=== PATIENT | female | born 1960 | race Caucasian/White ===

== ENCOUNTER 2016-09-13 06:55 | Day surgery (SDC) | payer BC ==
[2016-09-13] MEDS ORDERED: PROPOFOL 20 ML ONE ×2 (07:24)
[2016-09-13] MEDS ORDERED: PHENYLEPHRINE HCL 10 MG/1 ML SINGLE DOSE VIAL ONE (07:25)
[2016-09-13] MEDS ORDERED: SUCCINYLCHOLINE CHLORIDE 200 MG/10 ML VIAL ONE (07:25)
[2016-09-13] MEDS ORDERED: ePHEDrine SULFATE 50 MG/1 ML AMPULE ONE (07:25)
[2016-09-13 07:26] VITALS: BMI 36.5
[2016-09-13 08:29] VITALS: TEMP 97.5
[2016-09-13 09:44] LABS: BASOPHIL 0.6 % (0-2.0); EOSINOPHIL 3.6 % (0-4.5); MCH 31.6 pg (25.7-33.7); MCHC 33.6 g/dl (32.0-36.0); NEUTROPHILS 51.6 % (42.8-82.8); PLATELET COUNT 201 K/MM3 (134-434); RDW 13.7 % (11.6-15.6); WHITE BLOOD COUNT 5.6 K/mm3 (4.0-10.0)
[2016-09-13 09:53] VITALS: BP 130/97; PULSE 69
[2016-09-13 10:23] LABS: ALBUMIN 3.8 g/dl (3.4-5.0); ALK PHOS 50 U/L (45-117); ANION GAP 10 (8-16); BILIRUBIN,TOTAL 0.4 mg/dL (0.2-1.0); CALCIUM 8.7 mg/dL (8.5-10.1); CO2 26 mmol/L (21-32); CREATININE 0.7 mg/dL (0.55-1.02); GLUCOSE,RANDOM 98 mg/dL (74-106); SGOT/AST 28 U/L (15-37); SGPT/ALT 34 U/L (12-78); TOT PROT 6.6 g/dl (6.4-8.2)
[2016-09-13 10:45] LABS: C-REACTIVE PROTEIN 0.5 MG/DL (0.00-0.3)
[2016-09-15 06:36] LABS: GASTRIN 48 pg/mL (0-115)
--- NOTE | 2016-09-16 15:23 | PATH ---
Surgical Pathology Report Patient Name: JAILYN WHEELER [facility]. Rec. #: [id number] /Age/Gender: 1960 (Age: 56) / F Account: [id number] Location: U-ENDOSCOPY Taken: 09/13/2016 Received: 09/13/2016 Reported: 09/16/2016 Physicians: Mirna Escobedo M.D. Specimen(s) Received A: BX 2ND PORTION DUODENUM B: BX ULCERATED ANTRAL POLYPS Clinical History Epigastric pain, reflux Ulcerated antral polyps, hiatal hernia Final Diagnosis A. DUODENUM, SECOND PORTION, BIOPSY: DUODENAL MUCOSA WITH CHRONIC INFLAMMATION AND FOCAL SHARON'S GLANDS HYPERPLASIA. NO HISTOLOGIC EVIDENCE OF GLUTEN SENSITIVE ENTEROPATHY (CELIAC DISEASE). B. STOMACH, ULCERATED ANTRAL POLYPS, BIOPSY: FOCALLY ULCERATED POLYPOID FRAGMENTS OF GASTRIC ANTRAL MUCOSA WITH ASSOCIATED ACTIVE INFLAMMATION, MODERATE CHRONIC GASTRITIS AND MARKED REACTIVE GASTROPATHY WITH REACTIVE EPITHELIAL CHANGES. NO CARCINOID, NO DYSPLASIA OR CARCINOMA IDENTIFIED IN THE EXAMINED MATERIAL. IMMUNOSTAIN FOR H. PYLORI IS NEGATIVE FOR ORGANISMS. Comment: The case was discussed with Dr. Escobedo on 09/16/16. Electronically Signed Gianni David M.D. Gross Description A. Received in formalin, labeled "biopsy duodenum second portion" is a moul[place], irregular portion of soft tissue measuring 0.3 cm in greatest dimension. The specimen is submitted in toto in one cassette. B. Received in formalin, labeled "biopsy ulcerated antral polyp" are 5 [place], irregular portions of soft tissue ranging from 0.2-0.3 cm in greatest dimension. The specimens are submitted in toto in one cassette. 09/13/2016 [facility]09/13/2016
[2016-09-17 00:07] LABS: CHROMOGRANIN A 1 nmol/L (0-5)
== END 2016-09-13 10:40 | disposition home or self-care (01) ==
LOC: JASU-ENDO 06:55
PROVIDERS: ATTEND Internal Medicine Gastroenterology
PROC: 0DB68ZX Excision of Stomach, Via Natural or Artificial Opening Endoscopic, Diagnostic (ICD-10-PCS; 2016-09-13)
PROC: 0DB98ZX Excision of Duodenum, Via Natural or Artificial Opening Endoscopic, Diagnostic (ICD-10-PCS; principal; 2016-09-13 08:00)
DX: K31.7 Polyp of stomach and duodenum (principal); K44.9 Diaphragmatic hernia without obstruction or gangrene
CPT/HCPCS: 36415; 80053; 82378; 82941; 85025; 86140; 86316; 88305-TC; 88342-TC

== ENCOUNTER → 2024-10-01 | Day surgery (SDC) | payer BC ==
[2024-09-29 13:45] VITALS: BMI 23.2
[2024-10-01 09:44] VITALS: TEMP 98.1
[2024-10-01 10:10] VITALS: BP 126/70; PULSE 61; RESP 15
== END | disposition home or self-care (01) ==
LOC: JASU-ENDO 05:37
PROVIDERS: ATTEND Internal Medicine Gastroenterology
PROC: 0DB98ZX Excision of Duodenum, Via Natural or Artificial Opening Endoscopic, Diagnostic (ICD-10-PCS; 2024-10-01)
PROC: 0DB78ZX Excision of Stomach, Pylorus, Via Natural or Artificial Opening Endoscopic, Diagnostic (ICD-10-PCS; 2024-10-01)
PROC: 0DBL8ZX Excision of Transverse Colon, Via Natural or Artificial Opening Endoscopic, Diagnostic (ICD-10-PCS; principal; 2024-10-01 09:00)
DX: Z12.11 Encounter for screening for malignant neoplasm of colon (principal); D12.3 Benign neoplasm of transverse colon; K64.8 Other hemorrhoids; K57.30 Diverticulosis of large intestine without perforation or abscess without bleeding; K29.40 Chronic atrophic gastritis without bleeding; Z83.719 Family history of colon polyps, unspecified; Z87.19 Personal history of other diseases of the digestive system
CPT/HCPCS: 88305-TC; 88342-TC